=== PATIENT | male | born 1940 | race Caucasian/White ===

== ENCOUNTER 2021-08-14 17:10 | Emergency (ER) | payer MEDICARE, OTHER ==
[2021-08-14] MEDS ORDERED: Sodium Chloride 0.9% 500 ML 500 ML IV ONE (18:27)
[2021-08-14] MEDS: Sodium Chloride 0.9% 500 ML 500 ML IV ONE (18:30)
[2021-08-14 18:36] LABS: Absolute Neutrophil Ct (ANC) 4.78 (1.4-6.9); Basophil (Absolute #) 0.03 (0-0.4); Eosinophil % 4.7 % (0.00-5.0); Eosinophil (Absolute #) 0.36 (0-0.5); Hematocrit 40.7 % (42-50); Hemoglobin 13.2 gm/dl (12.5-18.0); Lymphocyte (Absolute #) 1.93 (1.0-4.6); Mean Corpuscular Hemoglobin 32.1 pg (26-32); Mean Corpuscular Hgb Concent. 32.4 g/dl (32-36); Mean Platelet Volume 10.6 fl (7.5-11.0); Monocyte (Absolute #) 0.63 (0.0-1.3); Monocytes % 8.2 % (0.0-12.0); Neutrophil % 61.7 % (36.0-66.0); Platelet Count 250 K/mm3 (150-450); Red Blood Count 4.11 M/mm3 (4.1-5.6); Red Cell Distribution Width 13.5 % (11.5-14.0); White Blood Count 7.7 K/mm3 (4.0-10.5)
--- NOTE | 2021-08-14 18:47 | ERPHSYRPT ---
- History of Present Illness Historian: patient Exam Limitations: no limitations Patient Subjective Stated Complaint: " I feel in my boat a couple days ago and this morning I got up and my lower left back has been hurting and it goes into the front really down low." Triage Nursing Assessment: Pt presents to ER with complaints of left lower flank pain. Pt fell in a boat 2 days ago and states has had increasingly worse pain in left flank since this morning. Pt is alert and oriented x 3. Skin is pink, warm, and dry. Obvious swelling and firmness to left lower flank area. Pt is able to void a small amount of urine. Pt is noted to be hard of hearing. Respirations are easy at this time. Patient also complains of nausea. Timing/Duration: day(s) (2), gradual onset, worse Activities at Onset: activity Quality: burning, sharpness Abdominal Pain Onset Location: flank Pain Radiation: groin Severity of Pain-Max: moderate Severity of Pain-Current: moderate Modifying Factors: Worsens With: coughing, movement, walking Associated Symptoms: back Previous symptoms: no prior history Hx Tetanus, Diphtheria Vaccination/Date Given: Yes Hx Influenza Vaccination/Date Given: Yes Hx Pneumococcal Vaccination/Date Given: Yes Immunizations Up to Date: Yes <PERLA RESENDIZ - Last Filed: 08/14/21 18:55> <YELITZA HUGHES - Last Filed: 08/14/21 20:25> - History of Present Illness Time Seen by Provider: 08/14/21 17:41 Physician History: 81 years old male on Eliquis presented in the ER with chief complaint of left flank/left lower back pain after he got up on a boat, lost balance and hit his side against the board. Patient report he slowly went down and hit his left low back/hip area. Did not hit his head. No loss of consciousness. This happened 2 days ago. He did not have any pain but gradually having increasing dull aching to sharp pain in the left flank with radiation to the left groin and does have bruising in the left hip area. Pain is more with movements and palpation/coughing. Better with resting. Denies any dark-colored urine/hematuria. No nausea or vomiting. Did not hit his chest, no chest pain palpitations or shortness of breath. No injury anywhere else. (PERLA RESENDIZ) Allergies/Adverse Reactions: No Known Drug Allergies Allergy (Verified 08/14/21 17:38) Home Medications: Levothyroxine Sodium 50 Mcg [Synthroid 50 Mcg] 100 mcg PO DAILY 09/25/12 [History] Apixaban [Eliquis 5 mg Tablet] 0.5 tab PO BID 08/14/21 [History] Atorvastatin Calcium 20 mg PO DAILY 08/14/21 [History] Meclizine HCl 25 mg [Antivert 25 mg] 25 mg PO TID PRN 08/14/21 [History] Propranolol HCl 80 mg PO BID 08/14/21 [History] Travel Risk - International Travel Have you traveled outside of the country in past 3 weeks: No - Coronavirus Screening Are you exhibiting any of the following symptoms?: No Close contact with a COVID-19 positive Pt in past 14-21 Days: No - Vaccine Status Have you recieved a Covid-19 vaccination: Yes [employer] Ppm Consultant: Tyler - Vaccination Dates Date of 2cond Vaccination (if applicable): August 2020 <PERLA RESENDIZ - Last Filed: 08/14/21 18:55> - Review of Systems Constitutional: No Symptoms Eyes: No Symptoms Ears, Nose, & Throat: No Symptoms Respiratory: No Symptoms Cardiac: No Symptoms Abdominal/Gastrointestinal: Abdominal Pain Genitourinary Symptoms: Flank Pain Musculoskeletal: Back Pain Skin: No Symptoms Neurological: No Symptoms Endocrine: No Symptoms Hematologic/Lymphatic: Easy Bruising Immunological/Allergic: No Symptoms <PERLA RESENDIZ - Last Filed: 08/14/21 18:55> - Past Medical History Pertinent Past Medical History: Yes Neurological History: No Pertinent History ENT History: No Pertinent History Cardiac History: Angina, Arrhythmia, High Cholesterol, Hypertension Respiratory History: Sleep Apnea Endocrine Medical History: Diabetes Type II, Hypothyroidism Musculoskeletal History: Fractures GI Medical History: No Pertinent History History: No Pertinent History Psycho-Social History: No Pertinent History Male Reproductive Disorders: No Pertinent History Other Medical History: right ankle hardware, - Past Surgical History Past Surgical History: Yes (appendix at 5 yrs old) Neuro Surgical History: No Pertinent History Cardiac: No Pertinent History Respiratory: No Pertinent History Gastrointestinal: Appendectomy Genitourinary: No Pertinent History Musculoskeletal: Orthopedic Surgery Male Surgical History: No Pertinent History - Social History Smoking Status: Never smoker How long have you smoked: 2001 Exposure to second hand smoke: No Drug Use: none Patient Lives Alone: No <PERLA RESENDIZ - Last Filed: 08/14/21 18:55> - Physical Exam General Appearance: no apparent distress, alert Eye Exam: PERRL/EOMI Ears, Nose, Throat Exam: normal ENT inspection Neck Exam: normal inspection, non-tender, supple, full range of motion Respiratory Exam: normal breath sounds, lungs clear Cardiovascular Exam: regular rate/rhythm, normal heart sounds Gastrointestinal/Abdomen Exam: soft, normal bowel sounds, tenderness (Left groin area) Back Exam: point tenderness (Left hip area of bruising with minimal tenderness. Left flank tenderness), No vertebral tenderness Extremity Exam: normal inspection, normal range of motion Neurologic Exam: alert, oriented x 3, cooperative, oracle bpm consultant II-XII nml as tested, normal mood/affect Skin Exam: normal color SpO2 Interpretation: normal SpO2: 96 O2 Delivery: Room Air <PERLA RESENDIZ - Last Filed: 08/14/21 18:55> - Nursing Vital Signs Nursing Vital Signs: Initial Vital Signs Respiratory Rate 18 08/14/21 17:30 Pain Scale Pain Intensity [] 8 Pain Intensity 4 - CT Exams Abdomen/Pelvis CT Interpretation: Discussed w/radiologist (Compared to 01/23/16. New 4-5 mm distal L ureter stone just proximal to UVJ. Mild L hydronephrosis & mild renal edema c/w obstructive uropathy. Again B/L renal cysts & colonic diverticulosis.) <ELLEN,YELITZA - Last Filed: 08/14/21 20:25> Ordered Tests: Active Orders 24 hr Category Date Time Status IV Insertion STAT Care 08/14/21 18:17 Active ABDOMEN AND PELVIS W/0 CONTRAS [CT] Stat Exams 08/14/21 19:12 Taken CBC W DIFF Stat Lab 08/14/21 17:35 Completed CK (IN-HOUSE) [CK-Creatinine Phosphokinase] Stat Lab 08/14/21 17:35 Completed CMP Stat Lab 08/14/21 17:35 Completed CULTURE,URINE Stat Lab 08/14/21 18:19 Received LIPASE Stat Lab 08/14/21 17:35 Completed Medication Summary Generic Name Dose Route Start Last Admin Trade Name Freq PRN Reason Stop Dose Admin Tamsulosin HCl 0.4 mg 08/15/21 10:00 Tamsulosin Hcl 0.4 Mg Cap PO 09/14/21 09:59 DAILY MARIBEL Discontinued Medications Generic Name Dose Route Start Last Admin Trade Name Corby PRN Reason Stop Dose Admin Sodium Chloride 500 mls @ 500 mls/hr 08/14/21 18:18 08/14/21 19:30 Sodium Chloride 0.9% 500 Ml IV 08/14/21 19:17 Infused .Q1H ONE Infusion Sodium Chloride Confirm 08/14/21 18:27 Sodium Chloride 0.9% 500 Ml Administered 08/14/21 18:28 Dose 500 mls @ ud IV .STK-MED ONE Morphine Sulfate 2 mg 08/14/21 18:44 08/14/21 18:52 Morphine Sulfate 2 Mg/Ml Inj IV 08/14/21 18:45 2 mg STAT ONE Administration Morphine Sulfate Confirm 08/14/21 18:50 Morphine Sulfate 2 Mg/Ml Inj Administered 08/14/21 18:51 Dose 2 mg .ROUTE .STK-MED ONE Ondansetron HCl 4 mg 08/14/21 18:44 08/14/21 18:52 Ondansetron Hcl 4 Mg/2 Ml Vial IV 08/14/21 18:45 4 mg STAT ONE Administration Ondansetron HCl Confirm 08/14/21 18:50 Ondansetron Hcl 4 Mg/2 Ml Vial Administered 08/14/21 18:51 Dose 4 mg .ROUTE .STK-MED ONE Lab/Rad Data: Laboratory Result Diagrams 08/14/21 17:35 08/14/21 17:35 Laboratory Results 08/14/21 08/14/21 08/14/21 Range/Units 18:19 17:35 17:35 WBC (4.0-10.5) K/mm3 RBC (4.1-5.6) M/mm3 Hgb (12.5-18.0) gm/dl Hct (42-50) % MCV (78-100) fl MCH (26-32) pg MCHC (32-36) g/dl RDW (11.5-14.0) % Plt Count (150-450) K/mm3 MPV (7.5-11.0) fl Gran % (36.0-66.0) % Eos # (Auto) (0-0.5) Absolute Lymphs (auto) (1.0-4.6) Absolute Monos (auto) (0.0-1.3) Lymphocytes % (24.0-44.0) % Monocytes % (0.0-12.0) % Eosinophils % (0.00-5.0) % Basophils % (0.0-0.4) % Absolute Granulocytes (1.4-6.9) Basophils # (0-0.4) Sodium 143 (137-145) mmol/L Potassium 4.0 (3.5-5.1) mmol/L Chloride 109 H (98-107) mmol/L Carbon Dioxide 23 (22-30) mmol/L Anion Gap 14.8 (5-15) MEQ/L BUN 17 (9-20) mg/dL Creatinine 1.76 H (0.66-1.25) mg/dL Estimated GFR 39.6 ML/MIN Glucose 101 (74-106) mg/dL Calcium 9.2 (8.4-10.2) mg/dL Total Bilirubin 0.50 (0.2-1.3) mg/dL AST 19 (17-59) U/L ALT 7 (0-50) U/L Alkaline Phosphatase 98 (38-126) U/L Creatine Kinase 39 L (55-170) U/L Serum Total Protein 6.9 (6.3-8.2) g/dL Albumin 4.0 (3.5-5.0) g/dL Lipase 351 H (23-300) U/L Urinalys Dipstick Clnc MAIN LAB Urine Color DARK YELLOW (YELLOW) Urine Appearance CLEAR (CLEAR) Urine pH 5.5 (5-6) Ur Specific Mcdonald 1.020 (1.005-1.025) POC Urine Protein Conf 100 (Negative) Urine Ketones NEGATIVE (NEGATIVE) Urine Nitrite NEGATIVE (NEGATIVE) Urine Bilirubin NEGATIVE (NEGATIVE) Urine Urobilinogen 0.2 (0-1) mg/dL Urine Leukocytes NEGATIVE (NEGATIVE) Urine WBC (Auto) 16-25 (0-5) /HPF Urine RBC (Auto) >101 (0-2) /HPF U Epithel Cells (Auto) NONE (FEW) /HPF Urine Bacteria (Auto) FEW (NEGATIVE) /HPF Urine RBC LARGE (0-5) Mohit/ul Calcium Oxalate Crystal 11-25 (NEGATIVE) /HPF Other Casts (Auto) 5-10 (NEGATIVE) /LPF Urine Mucus (Auto) SLIGHT (NEGATIVE) /HPF Ur Culture Indicated? YES Urine Glucose NEGATIVE (NEGATIVE) mg/dL 08/14/21 Range/Units 17:35 WBC 7.7 (4.0-10.5) K/mm3 RBC 4.11 (4.1-5.6) M/mm3 Hgb 13.2 (12.5-18.0) gm/dl Hct 40.7 L (42-50) % MCV 99.0 (78-100) fl MCH 32.1 H (26-32) pg MCHC 32.4 (32-36) g/dl RDW 13.5 (11.5-14.0) % Plt Count 250 (150-450) K/mm3 MPV 10.6 (7.5-11.0) fl Gran % 61.7 (36.0-66.0) % Eos # (Auto) 0.36 (0-0.5) Absolute Lymphs (auto) 1.93 (1.0-4.6) Absolute Monos (auto) 0.63 (0.0-1.3) Lymphocytes % 25.0 (24.0-44.0) % Monocytes % 8.2 (0.0-12.0) % Eosinophils % 4.7 (0.00-5.0) % Basophils % 0.4 (0.0-0.4) % Absolute Granulocytes 4.78 (1.4-6.9) Basophils # 0.03 (0-0.4) Sodium (137-145) mmol/L Potassium (3.5-5.1) mmol/L Chloride (98-107) mmol/L Carbon Dioxide (22-30) mmol/L Anion Gap (5-15) MEQ/L BUN (9-20) mg/dL Creatinine (0.66-1.25) mg/dL Estimated GFR ML/MIN Glucose (74-106) mg/dL Calcium (8.4-10.2) mg/dL Total Bilirubin (0.2-1.3) mg/dL AST (17-59) U/L ALT (0-50) U/L Alkaline Phosphatase (38-126) U/L Creatine Kinase (55-170) U/L Serum Total Protein (6.3-8.2) g/dL Albumin (3.5-5.0) g/dL Lipase (23-300) U/L Urinalys Dipstick Clnc Urine Color (YELLOW) Urine Appearance (CLEAR) Urine pH (5-6) Ur Specific Mcdonald (1.005-1.025) POC Urine Protein Conf (Negative) Urine Ketones (NEGATIVE) Urine Nitrite (NEGATIVE) Urine Bilirubin (NEGATIVE) Urine Urobilinogen (0-1) mg/dL Urine Leukocytes (NEGATIVE) Urine WBC (Auto) (0-5) /HPF Urine RBC (Auto) (0-2) /HPF U Epithel Cells (Auto) (FEW) /HPF Urine Bacteria (Auto) (NEGATIVE) /HPF Urine RBC (0-5) Mohit/ul Calcium Oxalate Crystal (NEGATIVE) /HPF Other Casts (Auto) (NEGATIVE) /LPF Urine Mucus (Auto) (NEGATIVE) /HPF Ur Culture Indicated? Urine Glucose (NEGATIVE) mg/dL - Progress Progress: improved <PERLA RESENDIZ - Last Filed: 08/14/21 18:55> - Progress Progress: improved, pain not gone completely Counseled pt/family regarding: diagnosis, need for follow-up, rad results <YELITZA HUGHES - Last Filed: 08/14/21 20:25> - Progress Progress Note: 08/14/21 18:47 Given pain medication for symptomatic relief. Work-up is pending, care is transferred to at shift change. (PERLA RESENDIZ) 08/14/21 20:16 CAT scan of the abdomen and pelvis discussed with patient and his family member. On left side of the abdomen there is no significant findings but patient has a approximately 4 to 5 mm kidney stone which is exactly at the UVJ junction almost at the bladder which he will probably pass. He is explained about that findings 2. We gave him 1 dose of Cipro 500 mg and Flomax 0.4 mg in the emergency room and prescription was sent. Patient is advised to have a somebody stay with him for at least next 24 to 48 hours. Patient and the family member verbalized instruction. (YELITZA HUGHES) <PERLA RESENDIZ - Last Filed: 08/14/21 18:55> - Departure Departure Disposition: Home Critical Care Time: Yes Critical Care Time(excluding separately billable procedures): Critical 30-74 mins <ELLENYELITZA - Last Filed: 08/14/21 20:25> - Departure Clinical Impression: Contusion of abdominal wall, initial encounter, Right ureteral stone Fall Qualifiers: Encounter type: initial encounter Qualified Code(s): W19.XXXA - Unspecified fall, initial encounter Anticoagulant causing adverse effect in therapeutic use Qualifiers: Encounter type: initial encounter Qualified Code(s): T45.515A - Adverse effect of anticoagulants, initial encounter Condition: Stable Referrals: SANTI PALAFOX [Primary Care Provider] - Follow up/PCP as directed Instructions: Renal Colic (DC), Contusion (DC), Preventing Falls Additional Instructions: During ER visit we have concluded that you have a abdominal wall contusion on the left side and some hematoma due to the blood thinner medicine you are taking. We did not found any inside abdominal wall bleeding. As incidental finding we do found a ureteral stone which is almost going to pass into your bladder so in the next 24 to 48 hours you may have some pain in your penile area and that we will followed by the passing of the stone. We have given you some medication in the emergency room to help you to pass the stone as well as take care of the possible infection due to the stone and we have already sent it to your pharmacy. Follow-up with your primary care physician in next 1 to 2 days. If symptoms get worse come back to the emergency room. Next. Patient require somebody to stay with him for next 48 hours. Discharge/Care Plan MELECIO ACKERMAN was seen on 08/14/21 in the Emergency Room. The patient was counseled regarding Diagnosis,Lab results, Imaging studies, need for follow up and when to return to the Emergency Room. Prescriptions given: Discharge Note I have spoken with the patient and/or caregivers. I have explained the patient's condition, diagnosis and treatment plan based on the information available to me at this time. I have answered the patient's and/or caregiver's questions and addressed any concerns. The patient and/or caregivers have as good understanding of the patient's diagnosis, condition and treatment plan as can be expected at this point. The vital signs have been stable. The patient's condition is stable and appropriate for discharge from the emergency department. The patient will pursue further outpatient evaluation with the primary care physician or other designated or consulting physician as outlined in the discharge instructions. The patient and/or caregivers are agreeable to this plan of care and follow-up instructions have been explained in detail. The patient and/or caregivers have received these instruction. The patient/and or caregivers are aware that any significant change in condition or worsening of symptoms should prompt an immediate return to this or the closest emergency department or call 911. MELECIO ACKERMAN was seen on 08/14/21 n the Emergency Room. At that time you were treated for an emergent condition, during your visit Laboratory, Radiology and/or other procedures may have been ordered. It is very important that you follow-up with your Primary Care Physician SANTI PALAFOX within the next 24-48 hours to review your Emergency Room visit and the final results of testing that was ordered. Some test results such as Urine Cultures, Blood Cultures, and other cultures if ordered will not be finalized for 24-48 hours. If you do not have a Primary Care Provider please call the medical records department at [phone] ext [phone] to obtain a copy of your results or you may sign into our patient portal to obtain these results by visiting us @ [email or web address] and completing the following steps: 1. Click on the Patient Portal link 2. Click the Patient Self Enrollment Link to complete the enrollment form and entering your 3. Once the enrollment form is completed you will receive an email with a temporary ID and password at the email address you provided. 4. Next choose a user name and password. Your user name must be at least 4 characters long and your password must be at least 4 characters long. 5. Choose a security question from the list and provide your answer to the question. If you already have signed into the Health Portal you may access your Health Care Information 08/12 by the following steps: 1. Login to our website @ [email or web address] 2. Enter your original user name and password. FAQS The [facility] Health Portal is an online tool that contains your Lab Results, Radiology Reports, Visit History, Discharge Instructions and Health Summary Lab and Radiology Results will not be available for 72 hours on the portal. The Portal is a secure site, passwords are encryted and URLs are re-written so they cannot be copied and pasted. You and authorized family members are the only ones who can access your Portal. Also there is a timeout feature that protects your information if you leave the Portal page open. If you have technical difficulty please use the Contact Us link on the page this will allow you to submit any questions you have regarding the Portal or you may contact the Medical Record Department at [phone]. Prescriptions: Ciprofloxacin [Cipro 500 MG] 500 mg PO BIDAC #10 tablet Tamsulosin HCl 0.4 mg [Flomax 0.4 MG] 0.4 mg PO DAILY #30 cap
[2021-08-14 18:48] LABS: ANION GAP 14.8 MEQ/L (5-15); BILIRUBIN,TOTAL 0.5 mg/dL (0.2-1.3); Calcium 9.2 mg/dL (8.4-10.2); Creatinine 1 1.76 mg/dL (0.66-1.25); EST GLOMERULAR FILTRATION RATE 39.6 ML/MIN; Total Protein 6.9 g/dL (6.3-8.2)
[2021-08-14] MEDS ORDERED: Zofran 4 MG/2 ML VIAL ONE (18:50)
[2021-08-14] MEDS ORDERED: MORPHINE SULFATE 2 MG INJ ONE (18:50)
[2021-08-14 18:51] LABS: Mucus SLIGHT /HPF (NEGATIVE)
[2021-08-14] MEDS: Zofran 4 MG/2 ML VIAL IV ONE (18:52)
[2021-08-14] MEDS: MORPHINE SULFATE 2 MG INJ IV ONE (18:52)
[2021-08-14 18:53] LABS: Appearance CLEAR (CLEAR); Bilirubin NEGATIVE (NEGATIVE); Glucose NEGATIVE (NEGATIVE); Ketones NEGATIVE (NEGATIVE); RBC LARGE Ery/ul (0-5)
[2021-08-14 18:54] LABS: Dipstick done @ ? MAIN LAB; Nitrite NEGATIVE (NEGATIVE); Ph 5.5 (5-6); Protein,Urine Dip 100 (Negative); RBC >101 /HPF (0-2); Urobilinogen 0.2 mg/dL (0-1)
[2021-08-14 18:55] LABS: Bacteria FEW /HPF (NEGATIVE); Urine Cultured Indicated? YES
[2021-08-14 19:10] VITALS: PULSE 60
[2021-08-14] MEDS ORDERED: Flomax 0.4 MG ONE (20:16)
[2021-08-14] MEDS ORDERED: Cipro 500 MG ONE (20:16)
[2021-08-14] MEDS: Cipro 500 MG PO ONE (20:19)
[2021-08-14] MEDS: Flomax 0.4 MG PO SCH (20:20)
[2021-08-14 20:26] VITALS: BP 160/67; O2SAT 98
--- NOTE | 2021-08-15 08:40 | XRAY ---
Indication: Left flank pain. Status post fall. Current blood thinner therapy. Multiple contiguous axial images obtained through the abdomen and pelvis without contrast using renal stone protocol. Comparison: January 23, 2016. Lung bases demonstrates mild bibasilar subsegmental atelectasis/scarring. Heart not enlarged. New small hiatal hernia. New 4-5 mm distal left ureter calculus just proximal to the UVJ. Proximal left ureter is slightly prominent and there is mild renal edema/hydronephrosis consistent with obstructive uropathy. Interval enlarging 2.4 cm left mid renal cyst, previously 1.5 cm. Noncontrasted stomach and bowel loops remain nonobstructed again with scattered diverticulosis. Again appendectomy. No free fluid/air. Stable hepatic/splenic calcified granulomas and small left lobe hepatic cyst. Remaining liver, pancreas, spleen, adrenal glands, kidneys, ureters, and bladder are unremarkable for noncontrast exam. Again heavy scattered aortoiliac calcifications without AAA. Osseous structures intact again with osteopenia and mild degenerative changes throughout the spine and both hips. Impression: 1. New 4-5 mm distal left ureteral calculus producing obstructive uropathy as detailed. 2. Enlarging left renal cyst. Initial sonogram may yield further formation. 3. New small hiatal hernia. 4. Again hepatic cyst, colonic diverticulosis, chronic bony findings, arteriosclerotic disease, and old granulomatous disease.
== END 2021-08-14 20:34 | disposition home or self-care (01) ==
LOC: ED 17:10
DX: S30.1XXA Contusion of abdominal wall, initial encounter (principal); W01.198A Fall on same level from slipping, tripping and stumbling with subsequent striking against other object, initial encounter; Y92.814 Boat as the place of occurrence of the external cause; T45.515A Adverse effect of anticoagulants, initial encounter; N13.2 Hydronephrosis with renal and ureteral calculous obstruction; M54.50 Low back pain, unspecified; R10.9 Unspecified abdominal pain; E78.5 Hyperlipidemia, unspecified; I10 Essential (primary) hypertension; E11.9 Type 2 diabetes mellitus without complications; Z79.01 Long term (current) use of anticoagulants; Z79.899 Other long term (current) drug therapy
CPT/HCPCS: 36000; 36415; 74176; 80053; 81015; 82550; 83690; 85025; 87086; 96374; 96375; 99284; 99291; J2270; J2405; A9270-GY